=== PATIENT | male | born 2000 | race Caucasian/White ===

== ENCOUNTER 2022-07-24 02:26 | Emergency (ER) | payer OTHER, SELFPAY ==
[2022-07-24 02:40] VITALS: PULSE 78
--- NOTE | 2022-07-24 02:56 | CRLHL7_ITS ---
For Patients: As a result of the Century Cures Act, medical imaging exams and procedure reports are released immediately into your electronic medical record. You may view this report before your referring provider. If you have questions, please contact your health care provider. INDICATION: [place] crack when fall, hand pain around 4th metacarpal, fall TECHNIQUE: Hand radiograph 3 views right COMPARISON: None FINDINGS: Evaluation of the digits on the lateral examination is moderately degraded due to overlapped digit positioning. Bone: There is a nondisplaced oblique fracture present in the mid 4th metacarpal. Joint: The carpal and metacarpal-phalangeal joints are unremarkable in appearance. The interphalangeal joints are normal in appearance. Soft tissue: Unremarkable. No radiopaque foreign bodies are seen. IMPRESSION: 1. There is a nondisplaced oblique fracture present in the mid 4th metacarpal. Dictated by Mino Lugo MD @ 07/24/2022 3:24:35 AM Dictated by: Mino Lugo MD @ 07/24/2022 03:24:41 (Electronically Signed)
[2022-07-24 02:58] VITALS: BP 165/75; PULSE 85; RESP 18; TEMP 36.7; O2SAT 99; BMI 26.4
--- NOTE | 2022-07-24 03:19 | ED.GENADULT ---
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 He waited a few hours but the pain and swelling got worse who presents emergency department in the middle the night. Related Data Home Medications Medication Instructions Recorded Confirmed dextroamphetamine-amphetamine 10 10 mg PO DAILY 04/10/22 04/10/22 mg tablet Allergies Allergy/AdvReac Type Severity Reaction Status Date / Time No Known Drug Allergies Allergy Verified 07/24/22 02:59 Review of Systems Narrative: Review of systems is outlined above otherwise noted to be negative. PFSH PFSH Social History Smoking Status: Never smoker Exam Narrative: Exam Narrative: Examination the right upper extremity shows bruising and swelling of the dorsum of the right hand. Tenderness is localized to the 4th metacarpal. No rotational deformity. Fingers appear normal and function normally. Good distal CMS. Wrist range of motion is full and painless. Const: Vital Signs, click to edit/add: Vital Signs - 24 hr 07/24/22 02:58 Temperature 98.0 F Pulse Rate [Right Pulse Oximeter] 85 Respiratory Rate 18 Blood Pressure [Ri ght Upper Arm] 165/75 H Pulse Oximetry 99 Oxygen Delivery Me thod Room Air Course Course Hospital Course: Patient seen and examined. Act right hand shows a nondisplaced midshaft fracture of the 4th metacarpal. Patient is placed in ulnar gutter splint holding the wrist in the functional position. Vital Signs Vital signs: Initial Vital Signs Temperature 98.0 F 07/24/22 02:58 Temperature Source Temporal Artery Scan 07/24/22 02:58 Pulse Rate 85 07/24/22 02:58 Respiratory Rate 18 07/24/22 02:58 Blood Pressure 165/75 H 07/24/22 02:58 Blood Pressure Mean 105 07/24/22 02:58 Blood Pressure Position Sitting 07/24/22 02:58 Pulse Oximetry 99 07/24/22 02:58 Oxygen Delivery Method 07/24/22 02:58 Vital Signs Temperature 98.0 F 07/24/22 02:58 Pulse Rate 85 07/24/22 02:58 Respiratory Rate 18 07/24/22 02:58 Blood Pressure 165/75 H 07/24/22 02:58 Pulse Oximetry 99 07/24/22 02:58 Oxygen Delivery Method 07/24/22 02:58 Temperature 98.0 F 07/24/22 02:58 Pulse Rate 85 07/24/22 02:58 Respiratory Rate 18 07/24/22 02:58 Blood Pressure 165/75 H 07/24/22 02:58 Pulse Oximetry 99 07/24/22 02:58 Oxygen Delivery Method 07/24/22 02:58 Discharge Plan Discharge Clinical Impression: Fracture of metacarpal Patient Disposition: Home, Self-Care Condition: Improved Additional Instructions: Ice, elevate, ibuprofen. Leave the splint on until seen by ortho. [phone]. Prescriptions: No Action dextroamphetamine-amphetamine 10 mg tablet 10 mg PO DAILY Label Comments: TAKE 1 TABLET BY MOUTH TWICE A DAY Follow Up/Referrals: Mignon Fay, SOCIOLOGY PROFESSOR [Primary Care Provider] - Stand Alone Forms: MyHealth Info Instructions
[2022-07-24 03:57] VITALS: BP 154/78; PULSE 79; RESP 18; TEMP 36.7; O2SAT 99
[2022-07-24 04:11] VITALS: BP 154/78; PULSE 79; RESP 18; TEMP 36.7
== END 2022-07-24 03:40 | disposition home or self-care (01) ==
PROVIDERS: Emergency Provider Family Medicine; PCP Registered Nurse
DX: S62.654A Nondisplaced fracture of middle phalanx of right ring finger, initial encounter for closed fracture (principal); W10.2XXA Fall (on)(from) incline, initial encounter
CPT/HCPCS: 29130; 73130; 99282; 99283